=== PATIENT | male | born 1955 | race Caucasian/White ===

== ENCOUNTER → 2016-08-01 | Outpatient (CLI) | payer BC ==
[~2016-08-01] MED LIST: EZET10TA63 PO; PRLSRUNK
[2016-08-01 12:22] LABS: BASO % 0.5 %; BASO ABS # 0.03 K/uL (0-0.2); COMPLETE YES; EOS % 0.2 %; HEMATOCRIT 47.9 % (42-52); IG% 0.7 %; LYMPH % 11.8 %; LYMPH ABS # 0.66 K/uL (1.2-3.4); MEAN CORPUSCULAR HEMOGLOBIN 31.8 pg (25-34); MEAN CORPUSCULAR HGB CONC 35.3 g/dl (32-36); MEAN PLATELET VOLUME 10.7 fL (7.4-10.4); MONO % 7.3 %; NEUT % 79.5 %; PLATELET COUNT 161 K/uL (130-400); RED BLOOD COUNT 5.32 M/uL (4.7-6.1); WHITE BLOOD COUNT 5.59 K/uL (4.8-10.8)
[2016-08-01 12:44] LABS: BLOOD UREA NITROGEN 14 mg/dl (7-18); BUN/CREATININE RATIO 15.2 (10-20); CALCIUM 8.5 mg/dl (8.5-10.1); CARBON DIOXIDE 28 mmol/L (21-32); CHLORIDE 105 mmol/L (98-107); CREATININE 0.92 mg/dl (0.60-1.40); GLUCOSE 96 mg/dl (70-99); POTASSIUM 4.1 mmol/L (3.5-5.1); SODIUM 138 mmol/L (136-145)
[2016-08-01 13:13] LABS: ESTIMATED AVERAGE GLUCOSE 120 mg/dl; HA1C FLAG Normal (Normal)
--- NOTE | 2016-08-05 09:03 | CODING QUERY MEDICAL NECESSITY ---
SUPPORTING DIAGNOSIS NEEDED Dr. Ag, A supporting diagnosis is required for the test/procedure performed on this patient in order for us to be reimbursed by the patient's insurance. Please provide a supporting diagnosis for the following test/procedure listed below next to the test name along with your signature. *If there is no additional diagnosis for this patient that would support the following test/procedure please document that below next to the test/procedure. Test(s)/Procedure(s) that require a supporting diagnosis: * ([id number]) VITAMIN D ASSAY DIAGNOSIS: DATE OF SERVICE: 08/01/16 Provider Signature: Date: Thank you Alexis Mcdowell [facility] Information Management Once completed, please kindly fax back to [phone] For questions please call [phone]
== END | disposition home or self-care (01) ==
LOC: C.LABPVFM 10:20
PROVIDERS: ATTEND Family Medicine
DX: E78.5 Hyperlipidemia, unspecified (principal); B34.9 Viral infection, unspecified; R73.09 Other abnormal glucose; M79.1 Myalgia

== ENCOUNTER → 2016-08-03 | Outpatient (CLI) | payer BC ==
[2016-08-03 13:27] LABS: LYME DISEASE AB IGM NEG (NEG)
[2016-08-03 13:30] LABS: LYME DISEASE AB IGG NEG (NEG)
== END | disposition home or self-care (01) ==
LOC: C.LABPVFM 07:04
PROVIDERS: ATTEND Family Medicine
DX: M79.1 Myalgia (principal)

== ENCOUNTER → 2016-08-17 | Outpatient (CLI) | payer BC ==
[2016-08-17 17:37] LABS: HEMATOCRIT 44.8 % (42-52); MEAN CORPUSCULAR HEMOGLOBIN 29.1 pg (25-34); MEAN CORPUSCULAR HGB CONC 32.4 g/dl (32-36); MEAN PLATELET VOLUME 10.8 fL (7.4-10.4); PLATELET COUNT 221 K/uL (130-400); RED BLOOD COUNT 4.98 M/uL (4.7-6.1); WHITE BLOOD COUNT 6.75 K/uL (4.8-10.8)
== END | disposition home or self-care (01) ==
LOC: C.LABPVFM 12:05
PROVIDERS: ATTEND Family Medicine
DX: K04.7 Periapical abscess without sinus (principal); R00.0 Tachycardia, unspecified

== ENCOUNTER → 2017-02-21 | Outpatient (CLI) | payer BC ==
[2017-02-21 17:50] LABS: HEMATOCRIT 43.9 % (42-52); MEAN CELL VOLUME 90.7 fL (80-100); MEAN CORPUSCULAR HEMOGLOBIN 31.8 pg (25-34); MEAN CORPUSCULAR HGB CONC 35.1 g/dl (32-36); PLATELET COUNT 292 K/uL (130-400); RED BLOOD COUNT 4.84 M/uL (4.7-6.1); WHITE BLOOD COUNT 11.01 K/uL (4.8-10.8)
[2017-02-21 18:44] LABS: ALT/SGPT 40 U/L (12-78); BLOOD UREA NITROGEN 15 mg/dl (7-18); BUN/CREATININE RATIO 19.6 (10-20); CARBON DIOXIDE 27 mmol/L (21-32); CHLORIDE 105 mmol/L (98-107); CREATININE 0.77 mg/dl (0.60-1.40); GLUCOSE 88 mg/dl (70-99); POTASSIUM 4.2 mmol/L (3.5-5.1); SODIUM 138 mmol/L (136-145)
[2017-02-21 18:55] LABS: ALB/GLOB RATIO 1.1 (0.9-2); ALKALINE PHOSPHATASE 102 U/L (45-117); AST/SGOT 25 U/L (15-37)
== END | disposition home or self-care (01) ==
LOC: C.LABPVFM 16:22
PROVIDERS: ATTEND Family Medicine
DX: B34.9 Viral infection, unspecified (principal)

== ENCOUNTER 2019-05-10 06:32 | Observation (INO) ==
--- NOTE | 2019-04-04 11:47 | PAT Medication Instructions ---
Medication Instructions Date of Service April 04, 2019 Home Medications Medication Instructions Recorded celecoxib 200 mg capsule See Rx Instructions .ROUTE 04/03/19 .COMPLEX #90 capsule omeprazole 20 mg capsule,delayed See Rx Instructions .ROUTE 04/03/19 release .COMPLEX #90 capsule cholecalciferol (vitamin D3) 25 mcg (1,000 unit) capsule 1,000 unit PO QAM multivitamin 1 tab PO QAM atorvastatin 40 mg PO QAM hydrochlorothiazide 25 mg PO QAM lisinopril 20 mg PO QAM metformin 1,000 mg PO QAM celecoxib 200 mg capsule See Rx Instructions .ROUTE .COMPLEX omeprazole 20 mg capsule,delayed release See Rx Instructions .ROUTE .COMPLEX ASK your surgeon for instructions celecoxib 200 mg capsule See Rx Instructions .ROUTE .COMPLEX DO NOT take the morning of surgery cholecalciferol (vitamin D3) 25 mcg (1,000 unit) capsule 1,000 unit PO QAM multivitamin 1 tab PO QAM hydrochlorothiazide 25 mg PO QAM lisinopril 20 mg PO QAM metformin 1,000 mg PO QAM Take morning of surgery With a small sip of water, OTHERWISE NOTHING TO EAT OR DRINK AFTER MIDNIGHT: atorvastatin 40 mg PO QAM omeprazole 20 mg capsule,delayed release See Rx Instructions .ROUTE .COMPLEX Other Notes If you have any questions please call us at [phone] or [phone] or [phone] or [phone]
--- NOTE | 2019-04-08 09:12 | Anesthesiology Consultation ---
Date of Service April 08, 2019 Assessment & Plan (1) Encounter for pre-operative examination: - Check BSG AM DOS Chart Review Chart Review: Acceptable Risk for Surgery and Patient seen in Pre Admission Testing Teaching & Discussion Pre-Anesthesia Teaching/Discussion Notes: Instructed NPO after midnight before surgery,except medications with 15 cc of water. Medication instructions provided according to the PAT guidelines. History Surgery Operation Date: 05/10/19 07:00 Proposed Procedures p Right Reverse Total Shuolder Arthroplasty - Yoan Figueroa DO Height/Weight Height: 5 ft 7 in Weight: 112.1 kg Allergies Allergy/AdvReac Type Severity Reaction Status Date / Time cefazolin Allergy Intermediate HIVES Verified 04/08/19 16:30 Penicillins Allergy Unknown unknown Verified 04/08/19 16:30 Medications Home Medications Medication Instructions Recorded Confirmed Last Taken cholecalciferol (vitamin D3) 25 1,000 unit PO QAM cap 07/25/18 04/08/19 Unknown mcg (1,000 unit) capsule multivitamin 1 tab PO QAM 08/28/18 04/08/19 Unknown atorvastatin 40 mg PO QAM 04/01/19 04/08/19 Unknown hydrochlorothiazide 25 mg PO QAM 04/01/19 04/08/19 Unknown lisinopril 20 mg PO QAM 04/01/19 04/08/19 Unknown metformin 1,000 mg PO QAM 04/01/19 04/08/19 Unknown celecoxib 200 mg capsule See Rx Instructions .ROUTE 04/03/19 04/08/19 Unknown .COMPLEX #90 capsule omeprazole 20 mg capsule,delayed See Rx Instructions .ROUTE 04/03/19 04/08/19 Unknown release .COMPLEX #90 capsule Past Medical History Medical History Diabetes mellitus, type 2 NIDDM GERD (gastroesophageal reflux disease) Hyperlipidemia Hypertension Obesity Osteoarthritis Exercise / Class Metabolic Activity II 4-5 Yardwork/Stairs/Walk up hill Past Family History Family History Family/Other No problems noted. Other No family history of adverse response to anesthesia Past Surgical History Surgical History Amputation of little finger partial right hand (2/2 trauma) History of carpal tunnel release bilateral History of colonoscopy Past Anesthesia History No Hx of Anesthesia Complications and No Family Hx of Anesthesia Complications History of PONV No Hx of PONV and No Hx of Motion Sickness Social History Smoking Status: Never smoker tobacco type: smokeless tobacco Do You Dip or Chew Tobacco: Yes (1 can/day (advised NPO AM DOS)) Hx Alcohol Use: No Hx Substance Use: No substance use type: does not use Review of Systems Patient denies chest pain, shortness of breath, dyspnea on exertion, cough, wheezing, palpitations. Physical Exam Vital Signs VITALS BP 137/85 P 72 TEMP 98.3 SP02 95%RA RESP 18 PHYSICAL Full neck and c-spine range of motion. Full TMJ range of motion. TMD 3.5 finger breaths Mallampati Score 2 Dentition: missing sides/molars, several caps/crowns on molars Lungs: clear throughout to auscultation Cardiac: regular rate and rhythm, no murmurs noted Spine: normal Carotid arteries: negative bruit Extremities: right pinky finger partial amputation Testing Laboratory Results 04/08/19 09:40 PT 9.5 Seconds (9.0-12.0) 04/08/19 09:40 INR 0.9 (0.9-1.1) 04/08/19 09:40 APTT 24.5 Seconds (21.0-31.0) 04/08/19 09:40 Blood Type O Negative 04/08/19 09:10 Antibody Screen NEGATIVE 04/08/19 09:10 *Surgeon's office made aware of elevated WBC* 03/27/19 SODIUM 137 POTASSIUM 4.4 CHLORIDE 105 CO2 28 BUN 22 CREATININE 0.94 GLUCOSE 106 HGBA1C 5.9% Electrocardiogram Date: 04/08/19 Findings: + NSR @ (72) Chest X-Ray Date: 04/08/19 Findings: + NAD
--- NOTE | 2019-04-08 10:04 | XRay Report ---
XR chest Pre-admission PA/Lat CLINICAL HISTORY: Preoperative evaluation. COMPARISON STUDY: No previous studies for comparison. FINDINGS: Lung volumes are at the lower limits of normal. Lungs are clear. There is no pneumothorax o r pleural effusion. Cardiac size is normal. Mediastinal contours are normal. There is no evidence for pulmonary edema. IMPRESSION: No acute cardiopulmonary findings. ACT 112: Negative or not required by law. Electronically signed by: Bijan Osorio M.D. 04/08/2019 10:03 AM
[2019-04-08 10:33] LABS: Basophils # (auto) 0.06 K/uL (0-0.2); Basophils % (auto) 0.5 %; Eosinophils # (auto) 0.07 K/uL (0-0.5); Eosinophils % (auto) 0.6 %; Hematocrit (blood only) 44.1 % (42-52); Hemoglobin 14.9 g/dL (14.0-18.0); Immature Granulocytes # (auto) 0.07 K/uL (0.00-0.02); Immature Granulocytes % (auto) 0.6 %; Lymphocytes # (auto) 2.35 K/uL (1.2-3.4); Lymphocytes % (auto) 18.8 %; Mean Corpuscular Hemoglobin 32.3 pg (25-34); Mean Corpuscular Hgb Conc 33.8 g/dL (32-36); Mean Corpuscular Volume 95.5 fL (80-100); Mean Platelet Volume 10.5 fL (7.4-10.4); Monocytes # (auto) 0.68 K/uL (0.11-0.59); Monocytes % (auto) 5.4 %; Neutrophils % (auto) 74.1 %; Platelet Count 278 K/uL (130-400); RDW Coefficient of Variation 12.8 % (11.5-14.5); RDW Standard Deviation 44.1 fL (36.4-46.3); Red Blood Count 4.62 M/uL (4.7-6.1); White Blood Count 12.53 K/uL (4.8-10.8)
[2019-04-08 11:02] LABS: INR 0.9 (0.9-1.1); Partial Thromboplastin Ratio 0.9; Partial Thromboplastin Time 24.5 Seconds (21.0-31.0); Prothrombin Time 9.5 Seconds (9.0-12.0)
--- NOTE | 2019-04-08 20:05 | Electrocardiogram Report ---
Test Reason : Blood Pressure : / mmHG Vent. Rate : 072 BPM Atrial Rate : 072 BPM P-R Int : 154 ms QRS Dur : 092 ms QT Int : 360 ms P-R-T Axes : 067 060 044 degrees QTc Int : 394 ms Normal sinus rhythm Normal ECG When compared with ECG of 11-MAR-2011 10:44, No significant change was found Confirmed by Haris Ahmadi ([id number]) on 04/08/2019 8:04:50 PM Referred By: Yoan Figueroa Confirmed By:Floyd Ahmadi
--- NOTE | 2019-05-09 16:11 | History & Physical Report ---
Date of Service May 09, 2019 Assessment & Plan (1) Rotator cuff arthropathy of right shoulder: We will proceed with a right reverse shoulder arthroplasty. Postoperatively he will be placed in a sling and kept overnight in the hospital for postoperative medical management. He plans to use energy physical therapy upon discharge. Present on Admission?: Yes History of Present Illness Chief Complaint: Rotator cuff arthropathy of the right shoulder Primary Care Provider: Gaby Gibson MD Mary Jane is a pleasant 63-year-old male who has been dealing with mild chronic right shoulder pain. 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 Unfortunately, in November, he was throwing some trash into a dumpster and a fell directly onto his right shoulder. He has been having severe shoulder pain and weakness since. Overall, his shoulder pain is gotten a little bit better but he still unable to hold anything out away from his body. MRI and clinical examination have been diagnostic for chronic retracted unrepairable rotator cuff tear. After failing conservative treatment, he has elected proceed with a right reverse shoulder arthroplasty. Allergies Allergy/AdvReac Type Severity Reaction Status Date / Time cefazolin Allergy Intermediate HIVES Verified 04/08/19 16:30 Penicillins Allergy Unknown unknown Verified 04/08/19 16:30 Home Medications Home Medications Medication Instructions Recorded Confirmed Type cholecalciferol (vitamin D3) 25 1,000 unit PO QAM cap 07/25/18 04/08/19 History mcg (1,000 unit) capsule multivitamin 1 tab PO QAM 08/28/18 04/08/19 History atorvastatin 40 mg PO QAM 04/01/19 04/08/19 History hydrochlorothiazide 25 mg PO QAM 04/01/19 04/08/19 History lisinopril 20 mg PO QAM 04/01/19 04/08/19 History metformin 1,000 mg PO QAM 04/01/19 04/08/19 History celecoxib 200 mg capsule See Rx Instructions .ROUTE 04/03/19 04/08/19 Rx .COMPLEX #90 capsule omeprazole 20 mg capsule,delayed See Rx Instructions .ROUTE 04/03/19 04/08/19 Rx release .COMPLEX #90 capsule Past Med/Surg History Medical History Diabetes mellitus, type 2 NIDDM GERD (gastroesophageal reflux disease) Hyperlipidemia Hypertension Obesity Osteoarthritis Surgical History Amputation of little finger partial right hand (2/2 trauma) History of carpal tunnel release bilateral History of colonoscopy Family History Family/Other No problems noted. Other No family history of adverse response to anesthesia Denies family history of Ovarian cancer Prostate cancer Myocardial infarction Breast cancer Colorectal cancer Social History Preferred Language: Russian Communication Ability: Effective Pulper Operator Required: No Beliefs That Will Affect Care: None marital status: Current Living Situation: Spouse current occupational status: employed current occupation: [employer] Feels Safe at Home: Yes Smoking Status: Never smoker Tobacco Type: smokeless tobacco ; Second Hand Exposure: No ; Hx Alcohol Use: No Hx Substance Use: No Dental Care, Regularly: Yes Physical Activity Frequency: Daily Review of Systems All systems reviewed & are unremarkable except as noted in HPI & below Physical Exam Constitutional: WD/WN, vitals as above Eyes: PERRL, conjunctivae normal, anicteric sclerae ENMT: external ear and nose normal, oropharynx normal Neck: trachea midline, no thyromegaly Respiratory: normal respiratory effort Cardiovascular: RRR, no murmur, no edema Gastrointestinal (Abdomen): normal bowel sounds, soft, nontender, no hepatosplenomegaly Musculoskeletal: Physical examination of the right shoulder reveals decreased range of motion and significant weakness. There is tenderness palpation along the anterior glenohumeral joint line. The right upper extremity is neurovascularly intact. Psychiatric: A+Ox3, euthymic affect Results & Data Diagnostic Findings Radiographs of the right shoulder show some signs of osteoarthritis with blunting of the greater tuberosity and some superior migration of the humeral head on the glenoid.
[~2019-05-10 06:32] MED LIST changes: +ACETAMINOPHEN 500 MG TAB PO SCH; +CEFAZOLIN 2000MG 2,000 MG/15 ML SYR IV SCH; -EZET10TA63 PO; +FAMOTIDINE 20 MG TAB PO SCH; +GABAPENTIN 600 MG DOSE PO SCH; +LR 15ML/HR IV SCH; +LR 60ML/HR IV SCH; -PRLSRUNK; +ROPIVACAINE 0.5% HCL/PF 150 MG, BUPIVACAINE 0.5% MPF 30 ML, EPINEPHrine 30MG/30ML (OR U... INSTIL SCH; +TRANEXAMIC ACID 1,000 MG **IV Intra-op IV SCH; +TRANEXAMIC ACID 1,000 MG **IV Pre-op IV SCH; +dexAMETHasone 4 MG TAB PO SCH
--- NOTE | 2019-05-10 06:46 | History & Physical Bridge Note ---
Date of Service May 10, 2019 History & Physical Bridge Note I have examined the patient, reviewed the History & Physical and in the interval since the performance of the History & Physical I have noted the following changes of clinical significance: no changes noted
[2019-05-10] MEDS ORDERED: LIDOCAINE HCL 2% 2 ML VIAL/AMP(20MG/ML) INFIL ONE ×2 (06:55→13:16)
[2019-05-10] MEDS ORDERED: ROCURONIUM BROMIDE 10 MG/ML 5 ML VIAL ONE ×2 (06:55→13:16)
[2019-05-10] MEDS ORDERED: PROPOFOL IV EMULSION 10 MG/ML 20 ML VIAL IV ONE ×2 (06:55→13:16)
[2019-05-10] MEDS ORDERED: MIDAZOLAM HCL 1 MG/ML 2ML VIAL ONE ×2 (06:55→13:17)
[2019-05-10] MEDS ORDERED: fentaNYL citrate 100 MCG/2 ML VIAL ONE ×2 (06:55→13:17)
[2019-05-10] MEDS ORDERED: ONDANSETRON INJ 2 MG/ML 2 ML VIAL ONE ×2 (06:55→13:16)
[2019-05-10] MEDS ORDERED: BUPIVACAINE 0.5 % 5 MG/1 ML PF 10ML VIAL ONE (06:59)
[2019-05-10] MEDS ORDERED: HYDROmorphone INJ 1 MG/ML SYRINGE IV PRN (12:23)
[2019-05-10] MEDS ORDERED: ATROPINE SULFATE 0.1 MG/ML 10ML SYR IV PRN (12:23)
[2019-05-10] MEDS ORDERED: fentaNYL citrate 100 MCG/2 ML VIAL IV PRN (12:23)
[2019-05-10] MEDS ORDERED: ePHEDrine sulfate 50 MG/ML AMP IV PRN (12:23)
[2019-05-10] MEDS ORDERED: ONDANSETRON INJ 2 MG/ML 2 ML VIAL IV PRN ×2 (12:23→17:36)
[2019-05-10] MEDS ORDERED: CEFAZOLIN 2,000 MG/15 ML IV PUSH IV ONE (14:11)
[2019-05-10] MEDS ORDERED: ORTHO JOINT ANESTHETIC ONE (14:25)
[2019-05-10] MEDS ORDERED: CLINDAMYCIN 600 MG/54 ML BAG IV SCH (16:00)
[2019-05-10] MEDS ORDERED: NEOSTIGMINE METHYLSULFATE 5 MG/5 ML SYR ONE (16:15)
[2019-05-10] MEDS ORDERED: GLYCOPYRROLATE 0.2 MG/ML VIAL ONE (16:15)
--- NOTE | 2019-05-10 16:17 | Operative Report ---
PG Post Operative Report Pre & Post Diagnosis Operation Date: 05/10/19 08:50 Pre-Op Diagnosis: Right Shoulder Rotator Cuff Arthropathy with tendinopathy of the long head of the biceps tendon Post-Op Diagnosis: Right Shoulder Rotator Cuff Arthropathy with tendinopathy of the long head of the biceps tendon I identified the patient and participated in the time-out.: Yes Procedure Operation Date: 05/10/19 08:50 Actual Procedures p Right Reverse Total Shuolder Arthroplasty with open biceps tenodesis as a separate procedure (modifier 59) (Right) - Yoan Figueroa DO Surgeon Yoan Figueroa DO Manager Retirement Yoan Smith PAC Estimated Blood Loss 200 Findings Consistent with Post-Op Diagnosis Specimens Right humeral head Complications none Disposition Disposition: Recovery Room Indications Zenia is a pleasant 63-year-old male who is been dealing with chronic increasing right shoulder pain and weakness. X-rays and clinical examination have been diagnostic for cuff arthropathy of the right shoulder. After failing conservative treatment, he elected to proceed with a right reverse shoulder arthroplasty. Description of Procedure A CPT code modifier 59: The long head of the biceps tendon was enlarged and inflamed consistent with tendinopathy. A tenodesis was opted. This was a separate and distinct portion of the procedure. For these reasons, a CPT code modifier 59 will be added to this case. Implants used: I used a [employer] Comprehensive reverse total shoulder arthroplasty system with a size 11 press fit mini humeral stem, a standard humeral tray and a standard humeral bearing, a 28 mm baseplate with a 6.5 mm central screw and superior and inferior locking screws, and a size 40 mm eccentric glenosphere. Zenia arrived at [facility] for the above procedure. He was seen in the preoperative holding area and the operative extremity was identified and signed. He was given a preoperative antibiotic, TXA, and an interscalene nerve block. He was taken back to the operating room, laid on table in supine position, and put under general anesthesia. He was then put into the beachchair position. The shoulder was then prepped and draped in sterile fashion. A timeout was done and the patient and the operative extremity was properly identified. A deltopectoral approach was used. Dissection was taken down through the fascia and the deltoid was retracted laterally and the conjoined tendon was retracted medially. The anterior shoulder was exposed. The biceps groove was opened up and the biceps tendon was examined extensively. The biceps tendon demonstrated enlargement and inflammatory changes consistent with longstanding inflammation in the context of osteoarthritis and cuff arthropathy. The long head of the biceps tendon was then tenodesed to the upper border of the pectoralis major. This was a separate and distinct portion of the procedure. The subscapularis was chronically torn. The inferior capsule was released and the humeral head was dislocated. A canal finding reamer was sent down the center of the humeral canal. Sequential reaming up to a size 11 reamer was done. Off that reamer, a proximal humeral resection guide was placed. The proximal humerus was resected at 135 of inclination and 25 of retroversion. Osteophytes were then removed and the glenoid was exposed. Time was spent doing a complete capsular and labral release. The glenoid guide was then placed in the inferior aspect of the glenoid. A 3.2 mm Steinmann pin was then placed into the glenoid vault at 10 of inclination. The glenoid baseplate was then reamed. The final size 28 mm baseplate was then impacted in the place. A 6.5 mm central screw was then placed followed by superior and inferior locking screws. A 40 mm eccentric glenosphere was then impacted into place. Surrounding soft tissues were then injected with 100 cc an orthopedic pain control cocktail. The proximal humerus was then exposed. Sequential broaching of the humerus up to a size 11 broach was done. Off that broach a standard humeral tray was trialed. The shoulder was then reduced, brought through a full range of motion, and felt to be stable. The shoulder was then dislocated and the broach was removed. The final size 11 mini press-fit humeral stem was then impacted into place. A standard humeral bearing was then snapped onto a standard humeral tray. The humeral tray was then impacted onto the humeral stem. The shoulder was once again reduced, brought through a full range of motion, and felt to be stable. The subscapularis was chronically torn and unable to be repaired. T A dilute betadyne lavage was then done for 3 minutes. The joint was then irrigated with normal saline solution. Hemostasis was obtained. The interval was closed with 2-0 Vicryl suture. The skin was then closed with 2-0 Vicryl and vidya. A soft dressing was placed and the arm was rested in a regular arm sling. He was then extubated and transferred to a hospital bed. He taken to the postanesthesia care unit in stable condition. He tolerated the procedure well. Yoan Smith PA-C, was present for the entire procedure. He was critical for patient positioning, prepping, draping, retraction exposure, wound closure and application of sterile dressing. I attest to the content of the Intraoperative Record and any orders documented therein. Any exceptions are noted below.
--- NOTE | 2019-05-10 17:17 | Anesthesiology Progress Note ---
Date of Service May 10, 2019 Anesthesia Post Procedure Vital Signs Vital Signs: Temp Pulse Resp BP Pulse Ox 05/10/19 17:05 54 L 20 133/93 92 05/10/19 16:55 54 L 16 149/80 H 97 05/10/19 16:45 63 18 136/74 94 05/10/19 16:39 36.3 C L 55 L 16 145/83 H 96 05/10/19 07:00 36.3 C L 83 18 139/81 97 Transfer of Care Handoff Completed per policy Notes Mental Status: alert / awake / arousable Patient Amnestic to Procedure: Yes Nausea / Vomiting: adequately controlled Pain: adequately controlled Airway Patency, RR, SpO2: stable & adequate BP & HR: stable & adequate Hydration State: stable & adequate Anesthetic Complications: no major complications apparent
[2019-05-10] MEDS ORDERED: METOCLOPRAMIDE HCL INJ 5 MG/ML 2 ML VIAL IV PRN (17:36)
[2019-05-10] MEDS ORDERED: HYDROmorphone INJ 0.5 MG/0.5 ML SYR IV PRN (17:36)
[2019-05-10] MEDS ORDERED: MAGNESIUM HYDROXIDE SUSP 30 ML UDC PO PRN (17:36)
[2019-05-10] MEDS ORDERED: NALOXONE HCL 0.4 MG/1 ML VIAL/CARP IV PRN (17:36)
[2019-05-10] MEDS ORDERED: bisacodyL 10 MG SUPP PR PRN (17:36)
[2019-05-10] MEDS ORDERED: CEFAZOLIN 2000MG 2,000 MG/15 ML SYR IV SCH (17:36)
[2019-05-10] MEDS ORDERED: OXYCODONE HCL IR 5 MG TAB (IMMEDIATE RELEASE) PO PRN (17:36)
--- NOTE | 2019-05-10 17:50 | XRay Report ---
XR shoulder RT min 2V routine CLINICAL HISTORY: Post shoulder surgery COMPARISON STUDY: None. FINDINGS: Status post reverse right total shoulder arthroplasty. Hardware appears intact. No fracture or dislocation. Skin vidya are in place. IMPRESSION: Status post reverse right total shoulder arthroplasty. No evidence for hardware complica tions. ACT 112: Negative or not required by law. Electronically signed by: Corbin Jain M.D. 05/10/2019 5:49 PM
[2019-05-10] MEDS ORDERED: PHARMACY GLYCEMIC MGMT CONSULT PRN (18:08)
[2019-05-10] MEDS: KETOROLAC 30 MG/ML VIAL IV SCH ×2 (18:45→23:13)
[2019-05-10] MEDS ORDERED: SODIUM CHLORIDE 0.9% 1000ML 1,000 ML IV SCH (19:00)
[2019-05-10] MEDS: INSULIN ASPART 100 UNITS/ML 3 ML PEN SC SCH ×2 (19:14→21:11)
[2019-05-10] MEDS: DOCUSATE SODIUM 100 MG CAP PO SCH (20:31)
[2019-05-10] MEDS ORDERED: GLUCOSE 10 TABS/TUBE PO PRN (20:45)
[2019-05-10] MEDS ORDERED: GLUCAGON FOR INJ 1 MG VIAL IM PRN (20:45)
[2019-05-10] MEDS ORDERED: CARBOHYDRATES FOR HYPOGLYCEMIA PO PRN (20:45)
[2019-05-10] MEDS ORDERED: DEXTROSE 50% 50 ML SYRINGE IV PRN (20:45)
[2019-05-10] MEDS ORDERED: GLUCOSE 40% GEL 15 GM TUBE PO PRN (20:45)
[2019-05-10] MEDS ORDERED: SENNA 8.6 MG TAB PO SCH (21:00)
[2019-05-10] MEDS ORDERED: LANTUS PER UNIT CHARGE SQ ONE (21:15)
[2019-05-10] MEDS: ACETAMINOPHEN 500 MG TAB PO SCH (21:28)
[2019-05-10] MEDS: CLINDAMYCIN 600 MG in DEXTROSE 5% 50 ML IV SCH (23:18)
[2019-05-11] MEDS: ACETAMINOPHEN 500 MG TAB PO SCH (05:58)
[2019-05-11] MEDS: KETOROLAC 30 MG/ML VIAL IV SCH (05:58)
[2019-05-11 06:13] LABS: Hematocrit (blood only) 38.9 % (42-52); Hemoglobin 13.1 g/dL (14.0-18.0); Immature Granulocytes # (auto) 0.04 K/uL (0.00-0.02); Immature Granulocytes % (auto) 0.3 %; Lymphocytes # (auto) 0.54 K/uL (1.2-3.4); Mean Corpuscular Hemoglobin 31.5 pg (25-34); Mean Corpuscular Hgb Conc 33.7 g/dL (32-36); Mean Corpuscular Volume 93.5 fL (80-100); Mean Platelet Volume 10.3 fL (7.4-10.4); Monocytes # (auto) 0.47 K/uL (0.11-0.59); Monocytes % (auto) 3.5 %; Neutrophils # (auto) 12.55 K/uL (1.4-6.5); Neutrophils % (auto) 92.2 %; Platelet Count 259 K/uL (130-400); RDW Coefficient of Variation 12.6 % (11.5-14.5); RDW Standard Deviation 42.9 fL (36.4-46.3); Red Blood Count 4.16 M/uL (4.7-6.1)
[2019-05-11 06:53] LABS: BUN Creatinine Ratio 23.1 (10-20); Calcium 8.6 mg/dl (8.5-10.1); Creatinine Clr Calc Pharmacy 85.8 ml/min; Est GFR (African American) 84.8; Est GFR (Non-African American) 73.2; Potassium 4.6 mmol/L (3.5-5.1)
--- NOTE | 2019-05-11 07:59 | Orthopedic Progress Note ---
Date of Service May 11, 2019 Assessment & Plan (1) History of reverse total replacement of right shoulder joint: Overall he is doing very well. Is not having much pain in the right shoulder. He will be seen by physical therapy this morning for ambulation and range of motion exercises. He can be discharged home later today. He will follow-up with orthopedics in 2 weeks. Present on Admission?: Yes Rajendra Knutson was seen and examined at bedside this morning. Overall he is doing very well. Is not having much pain in the right shoulder. He was able to get some sleep last night. He has no complaints. Physical Exam Musculoskeletal: On physical examination of the right shoulder, the dressing is clean and dry. He is wearing his sling as instructed. His block is still working. He can flex his fingers but he cannot extend his fingers or his thumb. He still has numbness on the dorsal aspect of his hand and his thumb. Results & Data ([facility]) Vital Signs (Past 12 Hours) Vital Signs Temp Pulse Resp BP Pulse Ox 05/11/19 03:00 37.0 C 49 L 16 143/71 H 95 05/10/19 23:20 37.3 C 44 L 14 113/70 94 05/10/19 20:33 36.6 C 59 L 18 104/64 95 Laboratory Results H & H 04/08/19 05/11/19 Range/Units 09:40 05:36 Hgb 14.9 13.1 L (14.0-18.0) g/dL Hct 44.1 38.9 L (42-52) % Coagulation 04/08/19 Range/Units 09:40 INR 0.9 (0.9-1.1) Diagnostic Findings Postoperative x-rays of the right shoulder show the prosthesis to be in anatomic alignment without any evidence of fracture, dislocation, or loosening. PG Care Time/CCT Total # of Minutes Spent Total Time Spent with Patient: Total time spent is greater than 50% in coordination of care (as documented) at patient's floor/unit and/or counseling patient: Coding Level of Care Code None Diagnoses History of reverse total replacement of right shoulder joint Z98.890
--- NOTE | 2019-05-11 08:00 | Discharge Summary ---
Date of Service May 11, 2019 Admission HPI Per Admitting Provider Mary Jane is a pleasant 63-year-old male who has been dealing with mild chronic right shoulder pain. 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 Unfortunately, in November, he was throwing some trash into a dumpster and a fell directly onto his right shoulder. He has been having severe shoulder pain and weakness since. Overall, his shoulder pain is gotten a little bit better but he still unable to hold anything out away from his body. MRI and clinical examination have been diagnostic for chronic retracted unrepairable rotator cuff tear. After failing conservative treatment, he has elected proceed with a right reverse shoulder arthroplasty. Principal Diagnosis Right reverse shoulder arthroplasty Discharge Data Allergies Allergy/AdvReac Type Severity Reaction Status Date / Time cefazolin Allergy Intermediate HIVES Verified 05/10/19 07:05 Penicillins Allergy Unknown unknown Verified 05/10/19 07:05 Consultations 05/10/19 17:36 Consult Case Management - Discharge Planning Routine Procedures Performed Operation Date: 05/10/19 08:50 Actual Procedures p Right Reverse Total Shoulder Arthroplasty(Right) - Yoan Figueroa DO Ordered Studies 05/10/19 05:00 US - OR guided needle [facility] Urgent Hospital Course (1) History of reverse total replacement of right shoulder joint: On May 10, 2019 Mary Jane arrived at [facility] and underwent a right reverse shoulder arthroplasty without complication. He had a general anesthetic and a right interscalene nerve block. Postoperatively he was placed in a sling and transferred to the general orthopedic floors. His ho spital course was uneventful. On postop day #1 his H&H was stable and his pain was well controlled. He was seen by physical therapy and able to do ambulation and range of motion exercises. He was then discharged to home. He will follow- up with orthopedics in 2 weeks. Total Time Total Time Spent Total Time Spent (In Minutes): 20 Discharge Plan Discharge Items Patient Disposition: Home - Home Health Services Reason For Visit: Right Shoulder Degenerative Joint Disease Discharge Diagnosis: Right reverse shoulder arthroplasty Activity: As commented below Non-emergency contact: Surgeon Call non-emergency contact if: your wound has increased redness and your wound has increased drainage Follow-up/Referrals: Anat Porter MD [Primary Care Provider] - Diet: Regular Addtl Attending Provider Instructions: Activity and Therapy Recommendations: * If you are using [facility] then therapy will be provided at your home until they feel you have accomplished all of your goals. * If you are using [facility] then Physical Therapy will be provided until they feel you are ready to start Outpatient Physical Therapy. * If you are not using home therapy then Outpatient Physical Therapy should start about 3-5 days from your day of surgery. Therapy will last about 8-12 weeks * Wear your sling for 3 weeks, unless otherwise instructed. You may remove your sling to shower and to dress, but otherwise, you should be in your sling at all times, including while sleeping * The shoulder replacement is very stable and you can use your hand while in the sling * You were shown a series of exercises in the hospital. Do these exercises daily including the exercises you were shown in physical therapy. Medications: * Narcotic You will likely be sent home from the hospital with a prescription for the narcotic pain medication that worked best throughout your stay. * Other medications may be prescribed for specific circumstances. If you have any questions, please call the office at . * Resume previous home medications unless otherwise instructed Dressing Care: Leave the plastic dressing in place for 5 days. After 5 days you may remove the plastic dressing. If the incision is not draining then you may leave the vidya open to air. If there is a little bit of drainage or if the vidya are getting stuck on your clothing then cover the incision with a dry dressing. The vidya will be removed at your 2 week follow-up appointment. Showering: You may shower with the plastic dressing in place. Let the shower spray hit the other shoulder. You can pat the plastic dry. If the dressing becomes wet underneath the plastic then simply remove the dressing. Keep the incision dry until you are 5 days out from the day of surgery. At that time you can shower with the vidya exposed. Let the soapy shower water run over the vidya and pat them dry. Do not scrub or soak the incision. Things To Watch For: * Drainage from the incision site that occurs more than one week after your surgery. * Increased redness at the incision site. * Fever above 102 degrees Fahrenheit. * Unusual chest pain or shortness of breath. * Call [facility] at with any of the above problems Follow-Up Visit: Follow-up with Dr. Figueroa 2-3 weeks after your day of surgery. An appointment was probably scheduled when you signed-up for surgery in the office. If you have any questions call Office Instructions: More detailed instructions as well as Frequently Asked Questions were provided in a folder by our office when you signed-up for surgery. Please review these instructions when you get home. If you have any further questions or concerns, please feel free to call the office at [phone] Pending Studies at Discharge: No Stand-Alone Forms: [facility], Smoking Cessation Medications and DC Order Prescriptions: New oxycodone 5 mg Tablet 5 mg PO Q4H PRN (Reason: pain) Qty: 30 RF: 0 Continued celecoxib 200 mg capsule See Rx Instructions .ROUTE .COMPLEX Qty: 90 RF: 4 omeprazole 20 mg capsule,delayed release(DR/EC) See Rx Instructions .ROUTE .COMPLEX Qty: 90 RF: 4 cholecalciferol (vitamin D3) 1,000 unit capsule 1,000 unit PO QAM RF: 0 multivitamin tablet 1 tab PO QAM RF: 0 atorvastatin 40 mg tablet 40 mg PO QAM RF: 0 lisinopril 20 mg tablet 20 mg PO QAM RF: 0 hydrochlorothiazide 25 mg tablet 25 mg PO QAM RF: 0 metformin 500 mg tablet 1,000 mg PO QAM RF: 0 Discharge Orders: Discharge Order (Routine); Ordered 05/11/19 Ordered By: Yoan Figueroa Admission Data Admit Date/Time: 05/10/19 16:42 Attending Provider: Yoan Figueroa Admit Provider: Yoan Figueroa Primary Care Provider: Anat Porter Coding Level of Care Code D/C Day Management <30 mins Diagnoses History of reverse total replacement of right shoulder joint Z98.890
[2019-05-11] MEDS ORDERED: PNEUMOCOCCAL POLYSACCHARIDES 25 MCG/0.5 ML VIAL/SYR IM ONE (08:14)
[2019-05-11] MEDS ORDERED: PNEUMOCOCCAL ADMINISTRATION CHARGE ONE (08:14)
[2019-05-11] MEDS: DOCUSATE SODIUM 100 MG CAP PO SCH (08:51)
[2019-05-11] MEDS: INSULIN ASPART 100 UNITS/ML 3 ML PEN SC SCH (08:54)
[2019-05-11] MEDS ORDERED: LANTUS PER UNIT CHARGE SQ SCH (09:00)
[2019-05-11] MEDS ORDERED: hydroCHLOROthiazide 25 MG TAB PO SCH (09:00)
[2019-05-11] MEDS ORDERED: MULTIVITAMIN TAB PO SCH (09:00)
[2019-05-11] MEDS ORDERED: lisinopriL 20 MG TAB PO SCH (09:00)
[2019-05-11] MEDS ORDERED: ATORVASTATIN 40 MG TAB PO SCH (09:00)
[2019-05-11] MEDS: CLINDAMYCIN 600 MG in DEXTROSE 5% 50 ML IV SCH (09:01)
== END 2019-05-11 11:19 | disposition home health service (06) ==
LOC: 3E 06:32 → ASU 06:32

== ENCOUNTER 2023-01-16 05:02 | Observation (INO) ==
--- NOTE | 2022-12-28 11:50 | PAT Medication Instructions ---
Medication Instructions Date of Service December 28, 2022 Home Medications Medication Instructions Recorded clindamycin HCl 300 mg capsule 600 mg PO ONCE prophylaxis 1 day 11/21/19 #2 caps celecoxib 200 mg capsule 200 mg PO QAM #90 caps 08/29/22 hydrochlorothiazide 25 mg tablet 25 mg PO QAM #90 tabs 08/29/22 lisinopril 20 mg tablet 20 mg PO QAM #90 tabs 08/29/22 omeprazole 20 mg capsule,delayed 20 mg PO QAM #90 caps 08/29/22 release cholecalciferol (vitamin D3) 25 mcg (1,000 unit) capsule 1,000 unit PO QAM multivitamin 1 tab PO QAM clindamycin HCl 300 mg capsule 600 mg PO ONCE celecoxib 200 mg capsule 200 mg PO QAM hydrochlorothiazide 25 mg tablet 25 mg PO QAM lisinopril 20 mg tablet 20 mg PO QAM omeprazole 20 mg capsule,delayed release 20 mg PO QAM atorvastatin 20 mg tablet 20 mg PO QAM semaglutide 0.25 mg or 0.5 mg (2 mg/3 mL) subcutaneous pen injector (Ozempic) 0.5 mg subcut Q7D STOP 7 days before surgery semaglutide 0.25 mg or 0.5 mg (2 mg/3 mL) subcutaneous pen injector (Ozempic) 0.5 mg subcut Q7D Continue as directed clindamycin HCl 300 mg capsule 600 mg PO ONCE ASK your surgeon for instructions celecoxib 200 mg capsule 200 mg PO QAM DO NOT take the morning of surgery cholecalciferol (vitamin D3) 25 mcg (1,000 unit) capsule 1,000 unit PO QAM multivitamin 1 tab PO QAM hydrochlorothiazide 25 mg tablet 25 mg PO QAM lisinopril 20 mg tablet 20 mg PO QAM Take morning of surgery With a small sip of water, OTHERWISE NOTHING TO EAT OR DRINK AFTER MIDNIGHT: omeprazole 20 mg capsule,delayed release 20 mg PO QAM atorvastatin 20 mg tablet 20 mg PO QAM Other Notes If you have any questions please call us at [phone] or [phone] or [phone] or [phone]
--- NOTE | 2023-01-03 09:19 | Anesthesiology Consultation ---
Date of Service January 03, 2023 Assessment & Plan (1) Encounter for pre-operative examination: Chart Review Chart Review: Acceptable Risk for Surgery and Patient seen in Pre Admission Testing - Check BSG AM DOS - Ozempic instructions: Patient takes on (Sundays). Patient informed at PAT visit to stop 7 days prior to surgery- voiced understanding. Patient advised to check with prescriber to see if alternative diabetic management changes recommended while holding Ozempic- if so, patient to call back to PAT to update chart and discuss if any further preop medication instructions needed. Pt's last dose of Ozempic will be 01/08/23. Patient will be off Ozempic x 8 days prior to DOS on 01/16/23 Pt currently scheduled as 23 hours observation. If surgeon decides to change patient to Same Day Joint, patient would be acceptable risk for TKA, pending patient is motivated, has good support and surgeon's office completes Same Day Joint Program preop requirements. Per PAT appt on 01/03/23, no recent illness/disease exposures, illness related symptoms, or recent illness/disease positive tests. Will leave to surgeon's discretion if preop Covid testing needed Teaching & Discussion Pre-Anesthesia Teaching/Discussion Notes: Instructed NPO after midnight before surgery,except medications with 15 cc of water. Medication instructions provided according to the PAT guidelines. History Surgery Operation Date: 01/16/23 07:00 Proposed Procedures p Right Total Knee Arthroplasty - Yoan Figueroa DO Height/Weight Height: 5 ft 7 in Weight: 113.8 kg Allergies Allergy/AdvReac Type Severity Reaction Status Date / Time cefazolin Allergy Unknown Sneezing Verified 12/27/22 12:51 Penicillins Allergy Unknown pt doesn't Verified 12/27/22 12:51 known Medications Home Medications Medication Instructions Recorded Confirmed Last Taken cholecalciferol (vitamin D3) 25 1,000 unit PO QAM 07/25/18 12/27/22 07/20/20 06:00 mcg (1,000 unit) capsule multivitamin 1 tab PO QAM 08/28/18 12/27/22 07/20/20 06:00 clindamycin HCl 300 mg capsule 600 mg PO ONCE prophylaxis 1 day 11/21/19 12/27/22 07/20/20 06:00 #2 caps celecoxib 200 mg capsule 200 mg PO QAM #90 caps 08/29/22 12/27/22 Unknown hydrochlorothiazide 25 mg tablet 25 mg PO QAM #90 tabs 08/29/22 12/27/22 Unknown lisinopril 20 mg tablet 20 mg PO QAM #90 tabs 08/29/22 12/27/22 Unknown omeprazole 20 mg capsule,delayed 20 mg PO QAM #90 caps 08/29/22 12/27/22 Unknown release atorvastatin 20 mg tablet 20 mg PO QAM 12/27/22 12/27/22 Unknown semaglutide 0.25 mg or 0.5 mg (2 0.5 mg subcut Q7D 12/27/22 12/27/22 Unknown mg/3 mL) subcutaneous pen injector ([employer]) Past Medical History Medical History (Updated 01/03/23 @ 09:28 by Zulema Isidro PA-C) Decreased vision of right eye S/p eye surgeries- chronically dilated right pupil Diabetes mellitus, type 2 NIDDM- Hgb A1C 6.0 in 11/2022 GERD (gastroesophageal reflux disease) well controlled and stable Hyperlipidemia Hypertension Obesity Exercise / Class Metabolic Activity II 4-5 Yardwork/Stairs/Walk up hill (one flight of stairs - no chest pain or SOB ) Past Family History Family History Family/Other No problems noted. 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) History of carpal tunnel release bilateral History of colonoscopy History of eye surgery HOLE IN RETINA, RIGHT EYE - X2 (BOTH MAR 2020) History of reverse total replacement of right shoulder joint (~04/2019) Hx of right cataract extraction Past Anesthesia History No Hx of Anesthesia Complications and No Family Hx of Anesthesia Complications History of PONV No Hx of PONV Social History Smoking Status: Never smoker tobacco type: smokeless tobacco Do You Dip or Chew Tobacco: Yes (1 can/day; advised) Hx Alcohol Use: Yes Alcohol type: beer alcohol intake frequency: holidays/special occasions only Hx Substance Use: No substance use type: does not use Review of Systems Patient denies chest pain, shortness of breath, dyspnea on exertion, cough, wheezing, palpitations. No hx of seizures, stroke, VT, apnea/snoring. No hx of blood clots or blood transfusions Physical Exam Vital Signs VITALS BP 122/76 P 79 TEMP 97.8 SP02 95% RESP 16 Constitutional no acute distress Pupil chronically dilated to right eye ENMT Mouth: no TMJ clicking Thyromental Distance: > or= 3.5 Finger Breadths (3.5) Mallampati Class: III Missing molars Crowns to molars Permanent bridge left side Neck neck extension not limited Respiratory normal respiratory effort; no respiratory distress Auscultation: lungs clear to auscultation bilaterally; no wheezes Cardiovascular Rate/Rhythm: regular rate and regular rhythm Heart Sounds: no murmur Vessels: no carotid bruit Musculoskeletal Spine: no pain with cervical ROM Extremities: extremities normal to inspection Psychiatric Orientation: alert Lab Results Anesthesia Preop Results Results Anesthesia Widget: WBC 9.03 K/ul (4.8-10.8) 01/03/23 Hgb 15.0 g/dl (14.0-18.0) 01/03/23 Hct 42.4 % (42.0-52.0) 01/03/23 Plt 262 K/uL (130-400) 01/03/23 Na 138 mmol/L (136-145) 01/03/23 K 3.7 mmol/L (3.5-5.1) 01/03/23 Cl 104 mmol/L (98-107) 01/03/23 CO2 28 mmol/L (21-32) 01/03/23 BUN 16 mg/dl (6-23) 01/03/23 Creat 0.79 mg/dl (0.6-1.4) 01/03/23 Glucose Level 123 mg/dl (70-99(Fasting)) H 01/03/23 PT 10.1 Seconds (9.0-12.0) 01/03/23 PTT 26.6 Seconds (21.0-31.0) 01/03/23 INR 0.9 (0.9-1.1) 01/03/23 HA1c 6.0 % (4.5-5.6) H 11/28/22 Blood Type O Negative 01/03/23 Antibody Screen NEGATIVE 01/03/23 Testing Electrocardiogram Date: 01/03/23 Findings: + NSR @ (76bpm ) Normal EKG per cardio Chest X-Ray Date: 01/03/23 Findings: + NAD FINDINGS: Right shoulder arthroplasty is partially imaged. Lung volumes are mildly diminished. Lungs are clear. There is no pneumothorax or pleural effusion. Cardiac size is normal. Mediastinal contours are normal. There is no evidence for pulmonary edema.
--- NOTE | 2023-01-12 15:13 | History & Physical Report ---
Date of Service January 12, 2023 Assessment & Plan (1) Osteoarthritis of right knee: We will proceed with a right total knee arthroplasty. Postoperatively he will be started on aspirin for DVT prophylaxis and kept overnight in the hospital for postop medical management. He plans to use [employer] upon discharge. History of Present Illness Chief Complaint: Osteoarthritis of the right knee. Primary Care Provider: Anat Porter MD Zenia is a pleasant 67-year-old male who has been dealing with chronic increasing right knee pain. I did a shoulder replacement on him right before the pandemic. He has done very well with that. Unfortunately, his knee pain has become more debilitating. He saw my partner and had x-rays, which diagnosed him with advanced osteoarthritis of the right knee. He had a cortisone injection, which only gave him a couple of weeks of relief. Had failed conservative treatment, he has elected proceed with a right total knee arthroplasty. Allergies Allergy/AdvReac Type Severity Reaction Status Date / Time cefazolin Allergy Unknown Sneezing Verified 12/27/22 12:51 Penicillins Allergy Unknown pt doesn't Verified 12/27/22 12:51 known Home Medications Medication Instructions Recorded Confirmed Type cholecalciferol (vitamin D3) 25 1,000 unit PO QAM 07/25/18 12/27/22 History mcg (1,000 unit) capsule multivitamin 1 tab PO QAM 08/28/18 12/27/22 History clindamycin HCl 300 mg capsule 600 mg (2 x 300 mg) PO ONCE 11/21/19 12/27/22 Rx prophylaxis 1 day #2 caps celecoxib 200 mg capsule 200 mg PO QAM #90 caps 08/29/22 12/27/22 Rx hydrochlorothiazide 25 mg tablet 25 mg PO QAM #90 tabs 08/29/22 12/27/22 Rx lisinopril 20 mg tablet 20 mg PO QAM #90 tabs 08/29/22 12/27/22 Rx omeprazole 20 mg capsule,delayed 20 mg PO QAM #90 caps 08/29/22 12/27/22 Rx release atorvastatin 20 mg tablet 20 mg PO QAM 12/27/22 12/27/22 History semaglutide 0.25 mg or 0.5 mg (2 0.5 mg subcut Q7D 12/27/22 12/27/22 History mg/3 mL) subcutaneous pen injector (Ozempic) Past Med/Surg History Medical History Decreased vision of right eye S/p eye surgeries- chronically dilated right pupil Obesity GERD (gastroesophageal reflux disease) well controlled and stable Diabetes mellitus, type 2 NIDDM- Hgb A1C 6.0 in 11/2022 Hyperlipidemia Hypertension Surgical History Hx of right cataract extraction History of eye surgery HOLE IN RETINA, RIGHT EYE - X2 (BOTH MAR 2020) History of reverse total replacement of right shoulder joint (~04/2019) History of carpal tunnel release bilateral History of colonoscopy 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 Physical Exam On physical examination the right knee, he has a slight varus deformity. He has range of motion from 5 to 115 degrees. No instability.. Constitutional WD/WN, vitals as above Eyes PERRL, conjunctivae normal, anicteric sclerae ENMT external ear and nose normal, oropharynx normal Neck trachea midline, no thyromegaly Respiratory normal respiratory effort Cardiovascular RRR, no murmur, no edema Gastrointestinal (Abdomen) normal bowel sounds, soft, nontender, no hepatosplenomegaly Psychiatric A+Ox3, euthymic affect Results & Data Results & Data Laboratory Results . Diagnostic Findings X-rays of the right knee show advanced osteoarthritis with joint space narrowing, osteophyte formation, and hvdf-ag-carb articulation. PG Care Time/CCT Total # of Minutes Spent Total Time Spent with Patient: Total time spent is greater than 50% in coordination of care (as documented) at patient's floor/unit and/or counseling patient: Coding Level of Care Code None Diagnoses Osteoarthritis of right knee M17.11
[2023-01-16] MEDS ORDERED: dexAMETHasone 4 MG TAB PO SCH (06:00)
[2023-01-16] MEDS ORDERED: ceFAZolin 2000MG 2,000 MG/15 ML SYR IV SCH (06:00)
[2023-01-16] MEDS ORDERED: ACETAMINOPHEN 500 MG TAB PO SCH (06:00)
[2023-01-16] MEDS ORDERED: LR 500ML BOLUS, THEN 15ML/HR IV SCH (06:00)
[2023-01-16] MEDS ORDERED: ORTHO JOINT MIX INFIL SCH (06:00)
[2023-01-16] MEDS ORDERED: GABAPENTIN 300 MG CAP PO SCH (06:00)
[2023-01-16] MEDS ORDERED: FAMOTIDINE 20 MG TAB PO SCH (06:00)
[2023-01-16] MEDS ORDERED: TRANEXAMIC ACID 1,000 MG **IV Pre-op IV SCH (06:00)
[2023-01-16] MEDS ORDERED: TRANEXAMIC ACID 1,000 MG **IV Intra-op IV SCH (06:00)
[2023-01-16] MEDS ORDERED: LR 60ML/HR IV SCH (06:00)
[2023-01-16] MEDS ORDERED: EPINEPHrine INJ 1 MG/ML AMP ONE (06:30)
[2023-01-16] MEDS ORDERED: BUPIVACAINE 0.25% PF 30 ML VIAL ONE (06:30)
[2023-01-16] MEDS ORDERED: DEXAMETHASONE SOD INJ 4 MG/ML VIAL ONE (06:30)
[2023-01-16] MEDS ORDERED: BUPIVACAINE 0.5 % 5 MG/1 ML PF 10ML VIAL ONE (06:30)
--- NOTE | 2023-01-16 06:35 | History & Physical Bridge Note ---
Date of Service January 16, 2023 History & Physical Bridge Note I have examined the patient, reviewed the History & Physical and in the interval since the performance of the History & Physical I have noted the following changes of clinical significance: no changes noted
[2023-01-16] MEDS ORDERED: ORTHO JOINT ANESTHETIC ONE (06:37)
[2023-01-16] MEDS ORDERED: MIDAZOLAM HCL 1 MG/ML 2ML VIAL ONE ×2 (06:45→06:48)
[2023-01-16] MEDS ORDERED: fentaNYL citrate PF 100 MCG/2 ML VIAL ONE ×2 (06:45→06:48)
[2023-01-16] MEDS ORDERED: ePHEDrine sulfate 50 MG/ML AMP IV PRN (06:59)
[2023-01-16] MEDS ORDERED: ONDANSETRON INJ 2 MG/ML 2 ML VIAL IV PRN ×2 (06:59→10:58)
[2023-01-16] MEDS ORDERED: fentaNYL citrate PF 100 MCG/2 ML VIAL IV PRN (06:59)
[2023-01-16] MEDS ORDERED: ATROPINE SULFATE 0.1 MG/ML 10ML SYR IV PRN (06:59)
[2023-01-16] MEDS ORDERED: PROPOFOL IV EMULSION 10 MG/ML 20 ML VIAL IV ONE ×2 (07:03→08:05)
[2023-01-16] MEDS ORDERED: PHENYLEPHRINE HCL 10 MG/ML VIAL ONE (08:05)
--- NOTE | 2023-01-16 08:06 | Operative Report ---
PG Post Operative Report Pre & Post Diagnosis Operation Date: 01/16/23 07:00 Pre-Op Diagnosis: Degenerative Joint Disease Right Knee Post-Op Diagnosis: Degenerative Joint Disease Right Knee I identified the patient and participated in the time-out.: Yes Procedure Operation Date: 01/16/23 07:00 Actual Procedures p Right Total Knee Arthroplasty(Right) - Yoan Figueroa DO Surgeon Yoan Figueroa DO Nuclear Engineer Yoan Smith PA-C Estimated Blood Loss 30 Findings Consistent with Post-Op Diagnosis Specimens Right femoral tibial bone Description of Procedure Implants used: I used a Bernarda Persona total knee arthroplasty system with a size 10 standard femur, F tibia, 34 oval patella, and a size 10 medial congruent polyethylene bearing. All components were cemented in place with Biomet cement. Zenia arrived [facility] for the above procedure. She was seen in the preoperative holding area and the operative extremity was identified and signed. She was given a preoperative antibiotic, TXA, a spinal anesthetic and an adductor nerve block. She was taken back to the operating room and laid on the table in supine position. She was given basic sedation. The operative knee was then prepped and draped in sterile fashion. A timeout was done, and the patient and the operative extremity was properly identified. A midline incision was made directly over the patella. Dissection was taken down to the extensor mechanism. A midvastus arthrotomy was used. The medial retinaculum was released and the fat pad was mostly excised. The knee was flexed and the ACL, PCL, and meniscus were removed. A drill was sent down the center of the femoral canal followed by an intramedullary apolinar. Off that apolinar a distal femoral cutting block was placed. 9 mm was resected off the distal femur at 5 of valgus. A posterior referencing AP sizing guide was then placed on the distal femur. The femur measured to be a size 10. 2 drill holes were placed in 3 of external rotation. A 4-in-1 cutting block was then impacted into place. Anterior, posterior, and chamfer cuts were then made. The proximal tibia was then exposed. An external tibial alignment guide was placed. A tibial cut guide was then anchored in place and the proximal tibia was then resected. The posterior aspect of the knee was then opened up and any additional meniscus fragments and osteophytes were removed. The tibia measured to be a size F. The tibial plate was then placed in the appropriate rotation and the tibia was drilled and punched. Trial components were then placed. I used a size 10 medial congruent polyethylene insert. The knee was brought through a full range of motion and felt to be stable. The peg holes for the femoral component were then drilled. The patella was then everted and 9 mm was resected off the posterior aspect of the patella. The patella measured to be a size 34 oval. 3 peg holes were then drilled. A trial patella was placed. The knee was once again brought through a full range of motion and felt to be stable. Trial components were then removed. The surrounding soft tissues were injected with 100 cc of an orthopedic pain control cocktail. All components were then cemented into place with Biomet cement. The final polyethylene insert was then snapped into place. Once cement was dry the tourniquet was deflated. Hemostasis was obtained. A dilute betadyne lavage was then done for 3 minutes. The joint was then irrigated with normal saline solution. The midvastus arthro franklin was then closed with #1 Vicryl suture. The skin was closed with 2-0 Vicryl, 3-0V lock suture, and vidya. A soft compressive dressing was placed. She was then transferred to a hospital bed and taken to the postanesthesia care unit in stable condition. She tolerated the procedure well. Yoan Smith PA-C, was present for the entire procedure. He was critical for patient positioning, prepping, draping, retraction exposure, wound closure and application of sterile dressing. I attest to the content of the Intraoperative Record and any orders documented therein. Any exceptions are noted below.
--- NOTE | 2023-01-16 09:41 | XRay Report ---
RIGHT KNEE 2 VIEWS History: Right total knee arthroplasty. Degenerative arthritis. Postop. FINDINGS: The patient is status post a right total knee arthroplasty. The hardware is intact. No frac ture or dislocation. Skin vidya are in place. IMPRESSION: Right total knee arthroplasty. No evidence for hardware complication. ACT 112: Negative or not required by law. Electronically signed by: Corbin Jain M.D. 01/16/2023 9:39 AM
--- NOTE | 2023-01-16 10:02 | Anesthesiology Progress Note ---
Date of Service January 16, 2023 Anesthesia Post Procedure Vital Signs Vital Signs: Temp Pulse Resp BP Pulse Ox O2 Del Method O2 Flow Rate 01/16/23 09:55 57 L 13 105/64 96 Room Air 01/16/23 09:45 59 L 13 101/72 93 Room Air 01/16/23 09:35 58 L 12 109/70 95 Room Air 01/16/23 09:25 64 15 105/67 94 Room Air 01/16/23 09:15 64 12 99/59 L 95 Room Air 01/16/23 09:05 71 14 92/60 L 95 Room Air 01/16/23 08:55 36.4 C L 74 14 97/57 L 96 Room Air 01/16/23 08:45 72 14 89/63 L 94 Room Air 01/16/23 08:35 76 17 94/61 L 96 Oxymask 4 01/16/23 08:28 36.1 C L 80 14 90/54 L 95 Oxymask 6 01/16/23 05:43 37 C 98 H 20 131/82 95 Room Air Pain Intensity Right Knee: Pain Intensity: 0 Transfer of Care Handoff Completed per policy Notes Mental Status: alert / awake / arousable Patient Amnestic to Procedure: Yes Nausea / Vomiting: adequately controlled Pain: adequately controlled Airway Patency, RR, SpO2: stable & adequate BP & HR: stable & adequate Hydration State: stable & adequate Neuraxial Anesthesia: was administered and sensory block is resolving Anesthetic Complications: no major complications apparent and Pt Satisfied with anesthetic care
[2023-01-16] MEDS ORDERED: MAGNESIUM HYDROXIDE SUSP 30 ML UDC PO PRN (10:58)
[2023-01-16] MEDS ORDERED: NALOXONE HCL 0.4 MG/1 ML VIAL/CARP IV PRN (10:58)
[2023-01-16] MEDS ORDERED: SODIUM CHLORIDE 0.9% 1,000 ML IV SCH (10:58)
[2023-01-16] MEDS ORDERED: PHARMACY GLYCEMIC MGMT CONSULT PRN (10:58)
[2023-01-16] MEDS ORDERED: METOCLOPRAMIDE HCL INJ 5 MG/ML 2 ML VIAL IV PRN (10:58)
[2023-01-16] MEDS ORDERED: oxyCODONE HCL IR 5 MG TAB (IMMEDIATE RELEASE) PO PRN (10:58)
[2023-01-16] MEDS ORDERED: HYDROmorphone INJ 0.5 MG/0.5 ML SYR IV PRN (10:58)
[2023-01-16] MEDS ORDERED: bisacodyL 10 MG SUPP PR PRN (11:14)
[2023-01-16] MEDS ORDERED: DEXTROSE 50% 50 ML SYRINGE IV PRN (11:15)
[2023-01-16] MEDS ORDERED: GLUCAGON FOR INJ 1 MG VIAL IM PRN (11:15)
[2023-01-16] MEDS ORDERED: CARBOHYDRATES FOR HYPOGLYCEMIA PO PRN (11:15)
[2023-01-16] MEDS ORDERED: GLUCOSE 10 TAB/TUBE PO PRN (11:15)
[2023-01-16] MEDS ORDERED: GLUCOSE 40% GEL 15 GM TUBE PO PRN (11:15)
[2023-01-16] MEDS: lisinopril 20 MG TAB PO SCH (12:03)
[2023-01-16] MEDS: KETOROLAC TROMETHAMINE 15 MG/ML VIAL IV SCH ×3 (12:03→23:42)
[2023-01-16] MEDS: ATORVASTATIN 20 MG TAB PO SCH (12:03)
[2023-01-16] MEDS: ASPIRIN 81 MG ECTAB PO SCH ×2 (12:03→20:35)
[2023-01-16] MEDS: MULTIVITAMIN TAB PO SCH (12:03)
[2023-01-16] MEDS: hydroCHLOROthiazide 25 MG TAB PO SCH (12:03)
[2023-01-16] MEDS: DOCUSATE SODIUM 100 MG CAP PO SCH ×2 (12:09→20:35)
[2023-01-16] MEDS: INSULIN ASPART PER UNIT CHARGE SC SCH ×3 (12:09→20:55)
[2023-01-16] MEDS ORDERED: LANTUS PER UNIT CHARGE SC ONE (12:15)
--- NOTE | 2023-01-16 13:04 | Pharmacy Report ---
Pharmacy Glycemic Short Note 2 - Date of Service January 16, 2023 - Glycemic Short BSG Results (Last 24 hours): 01/16/23 01/16/23 01/16/23 05:35 08:29 12:00 POC Glucose 143 H 106 H 163 H OUTPATIENT ANTIDIABETIC REGIMEN: * Ozempic HbA1c: 6% (11/28/22) ASSESSMENT: * MW is a 67 year old male POD #0 s/p right total knee arthroplasty * Received 4 mg IV dexamethasone, 8 mg PO dexamethasone, and intra-articular ortho-mix containing dexamethasone in OR * Preop BSG of 143 mg/dL, postop BSG of 163 mg/dL * Well-controlled T2DM per outpatient A1c on Ozempic * Will order SC basal/bolus for today, anticipating significant loosening tomorrow once steroids are discontinued PLAN FOR INPATIENT GLYCEMIC CONTROL: * Basal insulin * Lantus 15 units SQ x 1 * Bolus insulin * NovoLog per scale ACHS or Q6hrs while NPO * Goal Range: Low 110 mg/dL - High 140 mg/dL * Correction Factor: 20 mg/dL/unit * Nutritional / Prandial insulin per carb ratio of 1 unit per 7 grams CHO consumed
[2023-01-16] MEDS: ACETAMINOPHEN 500 MG TAB PO SCH ×2 (14:09→20:35)
[2023-01-16] MEDS: ceFAZolin 2000MG 2,000 MG/15 ML SYR IV SCH ×2 (14:09→23:42)
[2023-01-16] MEDS ORDERED: SENNA 8.6 MG TAB PO SCH (21:00)
[2023-01-17] MEDS: KETOROLAC TROMETHAMINE 15 MG/ML VIAL IV SCH (05:23)
[2023-01-17] MEDS: ACETAMINOPHEN 500 MG TAB PO SCH (05:23)
--- NOTE | 2023-01-17 06:36 | Orthopedic Progress Note ---
Date of Service January 17, 2023 Assessment & Plan (1) Status post right knee replacement: Overall he is doing very well. Is not having much pain in the right knee. He will be seen by physical therapy today for ambulation and range of motion exercises. The nursing staff can change his dressing after physical therapy. He is on aspirin for DVT prophylaxis. He can be discharged home later today. He will follow-up with orthopedics in 2 weeks. Rajendra Knutson was seen and examined at bedside this morning. Overall is doing very well. Is not having much pain in the right knee. He has been up to bedside. He has no complaints.. Review of Systems All systems reviewed & are unremarkable except as noted in HPI & below. Physical Exam On physical examination of the right knee, the dressing is clean and dry. His leg is out full extension. He has active dorsiflexion plantarflexion of his right ankle.. Results & Data Results & Data Laboratory Results . Diagnostic Findings Postoperative x-rays of the right knee show the prosthesis to be in anatomic alignment without any evidence of fracture complication, or loosening.. PG Care Time/CCT Total # of Minutes Spent Total Time Spent with Patient: Total time spent is greater than 50% in coordination of care (as documented) at patient's floor/unit and/or counseling patient: Coding Level of Care Code 15996 Post Operative Follow-Up Diagnoses Status post right knee replacement Z96.651
--- NOTE | 2023-01-17 06:37 | Discharge Summary ---
Date of Service January 17, 2023 Admission HPI (Per Admitting) Zenia is a pleasant 67-year-old male who has been dealing with chronic increasing right knee pain. I did a shoulder replacement on him right before the pandemic. He has done very well with that. Unfortunately, his knee pain has become more debilitating. He saw my partner and had x-rays, which diagnosed him with advanced osteoarthritis of the right knee. He had a cortisone injection, which only gave him a couple of weeks of relief. Had failed conservative treatment, he has elected proceed with a right total knee arthroplasty. Admission Exam (Per Admitting) On physical examination the right knee, he has a slight varus deformity. He has range of motion from 5 to 115 degrees. No instability.. Principal Diagnosis Same as "Discharge Diagnosis" noted below under Discharge Instructions. Discharge Exam On physical examination of the right knee, the dressing is clean and dry. His leg is out full extension. He has active dorsiflexion plantarflexion of his right ankle.. Discharge Data Procedures Performed Operation Date: 01/16/23 07:00 Actual Procedures p Right Total Knee Arthroplasty(Right) - Yoan Figueroa DO Ordered Studies 01/16/23 05:00 US - OR guided needle placemen Routine Hospital Course (1) Status post right knee replacement: On January 16, 2023 Zenia arrived at [facility] and underwent knee replacement without complication. There was a spinal anesthetic. Postoperatively the patient was started on aspirin for DVT prophylaxis and transferred to the general orthopedic floors. The hospital course was uneventful. On postop day #1, the vital signs were stable and the pain was well controlled. They were able to participate well in with physical therapy doing ambulation and range of motion exercises. They were then discharged home. They will follow-up with orthopedics in 2 weeks. PG Care Time/CCT Total # of Minutes Spent Total Time Spent with Patient: Total time spent is greater than 50% in coordination of care (as documented) at patient's floor/unit and/or counseling patient: Discharge Plan Discharge Items Patient Disposition: Home - Home Health Services Reason For Visit: DJD Right Knee Discharge Diagnosis: Right knee replacement Activity: Per Instructions section Non-emergency contact: Specialist Call non-emergency contact if: your wound has increased redness and your wound has increased drainage Follow-up/Referrals: Baitel,Anat, MD [Primary Care Provider] - Diet: Regular Addtl Attending Provider Instructions: Activity and Therapy Recommendations: * If you are using [facility] then therapy will be provided at your home until they feel you have accomplished all of your goals. * If you are using [facility] then Physical Therapy will be provided until they feel you are ready to start Outpatient Physical Therapy. * If you are not using home therapy then Outpatient Physical Therapy should start about 3-5 days from your day of surgery. Therapy will last about 6-10 weeks * It is important not to put a pillow under your knee when you are relaxing or sleeping. It is just as important to make sure you are getting your knee perfectly straight as it is to regain your knee bend. * You were shown a series of exercises in the hospital. Do these exercises three times each day including the exercises you were shown in physical therapy. * Get up and walk several times each day. For the first four weeks, try not to stand or walk for more than one hour at a time. If you do stand or walk for more than one hour, you will not hurt anything, but your leg will likely swell. * As you feel comfortable, you may change from the walker or crutches to a cane and then to independent walking. Medications: * Narcotic You will likely be sent home from the hospital with a prescription for the narcotic pain medication that worked best throughout your stay. * Aspirin Most patients will be required to take Aspirin 81mg twice a day for 6 weeks after surgery. This is obtained [id number] and a prescription is not necessary. * Cefadroxil -take the antibiotic twice a day for 10 days to help prevent infections. * Other medications may be prescribed for specific circumstances. If you have any questions, please call the office at . * Resume previous home medications unless otherwise instructed TEDs/Elastic Stockings: The white elastic stockings help limit swelling and prevent blood clots from forming in your legs.~ The more you wear them, the more they work. Wear them for six weeks. Dressing Care: The dressing can be changed after physical therapy on postop day #1. Daily dry dressing changes for a few days, especially if the incision is still draining some. If the incision is not draining then you may leave the vidya open to air. If there is a little bit of drainage or if the vidya are getting stuck on your clothing then cover the incision with a dry dressing. The vidya will be removed at your 2 week follow-up appointment. Showering: You may shower 5 days from the day of surgery as long as the incision is no longer draining. You may shower with the vidya exposed. Let soapy water run over the vidya and pat them dry. Do not scrub or soak the incision. Things To Watch For: * Drainage from the incision site that occurs more than one week after your surgery. * Increased redness at the incision site. * Fever above 102 degrees Fahrenheit. * Unusual chest pain or shortness of breath. * Call [facility] at with any of the above problems Follow-Up Visit: Follow-up with Dr. Figueroa's PA (Yoan Smith) 2-3 weeks after your day of surgery. He will remove your vidya and answer any questions. If you have any additional questions or concerns, Dr Figueroa is usually in the office at the same time and will be available An appointment was probably scheduled when you signed-up for surgery in the office. If you have any questions call Office Instructions: More detailed instructions as well as Frequently Asked Questions were provided in a folder by our office when you signed-up for surgery. Please review these instructions when you get home. If you have any further questions or concerns, please feel free to call the office at [phone] Pending Studies at Discharge: No Stand-Alone Forms: My [facility], Smoking Cessation Medications and DC Order Prescriptions: New oxycodone 5 mg Tablet 5 mg PO Q4H PRN (Reason: pain) Qty: 30 0RF cefadroxil 500 mg capsule 500 mg PO BID 10 Days Qty: 20 0RF aspirin 81 mg Tablet,Delayed Release (Dr/Ec) 81 mg PO BID 42 Days Qty: 0 0RF Continued clindamycin HCl 300 mg capsule 600 mg PO ONCE 1 Days Qty: 2 3RF Rx Instructions: Two tablets one hour prior to dental procedure celecoxib 200 mg capsule 200 mg PO QAM Qty: 90 3RF lisinopril 20 mg tablet 20 mg PO QAM Qty: 90 3RF omeprazole 20 mg capsule,delayed release(DR/EC) 20 mg PO QAM Qty: 90 3RF hydrochlorothiazide 25 mg tablet 25 mg PO QAM Qty: 90 3RF cholecalciferol (vitamin D3) 1,000 unit capsule 1,000 unit PO QAM multivitamin tablet 1 tab PO QAM atorvastatin 20 mg tablet 20 mg PO QAM Ozempic 0.25 mg or 0.5 mg (2 mg/3 mL) pen injector 0.5 mg subcut Q7D Patient Comments: sundays Rx Instructions: 0.25mg SC WEEKLY for 4 weeks, then increase to 0.5mg SC WEEKLY. subcutaneously; Admission Data Admit Date/Time: 01/16/23 08:29 Attending Provider: Yoan Figueroa Admit Provider: Yoan Figueroa Primary Care Provider: Anat Porter Other Providers: [facility]
[2023-01-17] MEDS: INSULIN ASPART PER UNIT CHARGE SC SCH (08:20)
[2023-01-17] MEDS: lisinopril 20 MG TAB PO SCH (08:23)
[2023-01-17] MEDS: MULTIVITAMIN TAB PO SCH (08:23)
[2023-01-17] MEDS: ATORVASTATIN 20 MG TAB PO SCH (08:23)
[2023-01-17] MEDS: ASPIRIN 81 MG ECTAB PO SCH (08:24)
[2023-01-17] MEDS: hydroCHLOROthiazide 25 MG TAB PO SCH (08:24)
== END 2023-01-17 10:03 | disposition home health service (06) ==
LOC: 3E 05:02 → ASU 05:02